=== PATIENT | male | born 1995 | race Caucasian/White ===

== ENCOUNTER 2018-04-21 10:13 | Emergency (ER) | payer BC ==
[2018-04-21 10:54] VITALS: BP 120/63
--- NOTE | 2018-04-21 12:26 | UC ---
UC General HPI - HPI Summary HPI Summary: Pt presnets with c/o fatigue, and generalized body and joint pain X 10 days. Pt states joint and body aches are worse in the morning. Pt is an avid outdoors person but unsure if ever bit by a tick. - History of Current Complaint Chief Complaint: UCGeneralIllness Stated Complaint: BODY ACHES, JOINT PAIN, FATIGUE Time Seen by Provider: 04/21/18 11:14 Hx Obtained From: Patient Onset/Duration: Sudden Onset, Lasting Days, Still Present Timing: Constant Onset Severity: Moderate Current Severity: Mild Pain Intensity: 4 - Allergy/Home Medications Allergies/Adverse Reactions: Allergies Allergy/AdvReac Type Severity Reaction Status Date / Time No Known Allergies Allergy Verified 04/21/18 10:47 Home Medications: Home Medications NK [No Home Medications Reported] 04/21/18 [History Confirmed 04/21/18] PMH/Surg Hx/FS Hx/Imm Hx Previously Healthy: Yes - Surgical History Surgical History: None - Family History Known Family History: Positive: Cardiac Disease - Social History Occupation: Employed Full-time Alcohol Use: Occasionally Substance Use Type: None Smoking Status (MU): Never Smoked Tobacco Type: Smokeless Tobacco Amount Used/How Often: twice monthly Have You Smoked in the Last Year: No - uses smokeless tobacco Review of Systems All Other Systems Reviewed And Are Negative: Yes Constitutional: Positive: Fatigue Skin: Positive: Negative Eyes: Positive: Negative ENT: Positive: Negative Respiratory: Positive: Negative Cardiovascular: Positive: Negative Gastrointestinal: Positive: Negative Genitourinary: Positive: Negative Motor: Positive: Negative Neurovascular: Positive: Negative Musculoskeletal: Positive: Arthralgia, Myalgia Neurological: Positive: Negative Psychological: Positive: Negative Is Patient Immunocompromised?: No Physical Exam Triage Information Reviewed: Yes Appearance: Well-Appearing Vital Signs: Initial Vital Signs Temp 98.5 F 04/21/18 10:48 Pulse 69 04/21/18 10:48 Resp 14 04/21/18 10:48 BP 120/63 04/21/18 10:48 Pulse Ox 100 04/21/18 10:48 Vital Signs Reviewed: Yes Eye Exam: Normal ENT Exam: Normal Dental Exam: Normal Neck exam: Normal Neck: Positive: Supple, Nontender, No Lymphadenopathy Respiratory Exam: Normal Cardiovascular Exam: Normal Musculoskeletal Exam: Normal Neurological Exam: Normal Psychological Exam: Normal Skin Exam: Normal Course/Dx - Differential Dx - Multi-Symptom Differential Diagnoses: Other - lyme - Diagnoses Provider Diagnosis: Arthralgia Discharge - Sign-Out/Discharge Documenting (check all that apply): Patient Departure All imaging exams completed and their final reports reviewed: No Studies - Discharge Plan Condition: Stable Disposition: HOME Patient Education Materials: Musculoskeletal Pain (ED), Arthralgia (ED) Referrals: [facility] [Outside] - As Soon As Possible No Primary Care Phys,NOPCP [Primary Care Provider] - - Billing Disposition and Condition Condition: STABLE Disposition: Home
[2018-04-21 19:30] LABS: ABS Basophils 0 10^3/ul (0-0.2); ABS Eosinophils 0.7 10^3/ul (0-0.6); ABS Lymphocytes 1.9 10^3/ul (1.0-4.8); ABS Monocytes 0.6 10^3/ul (0-0.8); ABS Neutrophils 2.6 10^3/ul (1.5-7.7); ABS Nucleated RBC 0 10^3/ul; Eosinophil % 11.8 %; Hematocrit 45 % (42-52); Hemoglobin 15.2 g/dl (14.0-18.0); Mean Corpuscular HGB Conc 34 g/dl (31-36); Mean Corpuscular Hemoglobin 29 pg (27-31); Mean Corpuscular Volume 87 fL (80-94); Mean Platelet Volume 7.9 fL (7.4-10.4); Nucleated Red Blood Cells % 0.4; Platelet Count 247 10^3/ul (150-450); Red Blood Count 5.18 10^6/ul (4.00-5.40); Red Cell Distribution Width 13 % (10.5-15); White Blood Count 5.8 10^3/ul (3.5-10.8)
[2018-04-21 19:33] LABS: EGFR Non-African American 103.7 (>60)
== END 2018-04-21 11:48 | disposition home or self-care (01) ==
LOC: UCCORT 10:13
DX: M25.50 Pain in unspecified joint (principal); F17.290 Nicotine dependence, other tobacco product, uncomplicated
CPT/HCPCS: 36415; 80053; 85025; 86618; 99201; G0463